=== PATIENT | male | born 1995 | race Caucasian/White ===

== ENCOUNTER 2021-04-15 20:03 | Emergency (ER) | payer BC ==
[~2021-04-15] VITALS: Ht 170.2 cm; Wt 71.7 kg
[2021-04-15] MEDS ORDERED: IBUPROFEN600 MG PO (20:13)
[2021-04-15] MEDS ORDERED: MEDROL4 MG PO (20:13)
[2021-04-15] MEDS ORDERED: DEXAMETHASONE SOD PHOS 10 MG/1 ML VIAL IM ONE (20:15)
[2021-04-15] MEDS ORDERED: DEXAMETHASONE SOD PHOS 10 MG/1 ML VIAL ONE (20:22)
== END 2021-04-15 20:39 | disposition home or self-care (01) ==
LOC: ER 20:13
DX: J02.9 Acute pharyngitis, unspecified (principal); I10 Essential (primary) hypertension
CPT/HCPCS: 99282; J1100